=== PATIENT | female | born 1995 | race Two or more races ===

== ENCOUNTER 2022-07-11 19:36 | Emergency (ER) | payer OTHER ==
[~2022-07-11] VITALS: Ht 162.6 cm; Wt 63.9 kg
[2022-07-11 20:25] VITALS: BP 114/75
[2022-07-11] MEDS ORDERED: IBUPROFEN 600 MG TAB PO ONE (20:30)
[2022-07-11] MEDS ORDERED: ACET-1158 PO (23:07)
[2022-07-11] MEDS ORDERED: ONDA-144 PO (23:07)
== END 2022-07-11 23:20 | disposition home or self-care (01) ==
LOC: ER 19:39
DX: K52.9 Noninfective gastroenteritis and colitis, unspecified (principal); Z20.822 Contact with and (suspected) exposure to COVID-19
CPT/HCPCS: 36415; 81002; 87426; 87804

== ENCOUNTER 2023-08-01 12:44 | Emergency (ER) | payer OTHER ==
[~2023-08-01] VITALS: Ht 162.6 cm; Wt 68.1 kg
[~2023-08-01 12:44] MED LIST: ACET500T58 PO; ONDA-144 PO
[2023-08-01 12:59] VITALS: BP 123/75; PULSE 100; RESP 18; O2SAT 98
[2023-08-01 13:34] LABS: Hematocrit 40.9 % (36.0-46.0); Hemoglobin 13.8 g/dL (12.2-16.2); Mean Corpuscular Hemoglobin 31.4 pg (28.0-32.0); Mean Corpuscular Hgb Conc. 33.8 g/dL (32.0-36.0); Mean Corpuscular Volume 93.2 fL (80.0-100.0); Red Blood Cells 4.39 10^6/uL (4.0-5.20); Red Cell Distribution Width 13.4 % (11.8-14.3)
[2023-08-01 13:50] LABS: Basophils % (manual) 0 (0.0-2.0); Blast Cells 0; Eosinophils % (manual) 0 (0-7); Metamyelocytes % 0; Myelocytes % 0; Promyelocytes % 0; Reactive Lymphocytes 0
[2023-08-01 13:53] LABS: Alanine Aminotransferase 20 U/L (7-40); Albumin 4.7 g/dL (3.2-4.8); Alkaline Phosphatase 59 U/L (46-116); Anion Gap 8 (5-15); Aspartate Aminotransferase 26 U/L (13-40); BUN/Creatinine Ratio 9.7 (10.0-20.0); Blood Urea Nitrogen 10 mg/dL (9-23); Calcium 9.4 mg/dL (8.7-10.4); Carbon Dioxide 25 mmol/L (20-30); Chloride 105 mmol/L (98-107); Glucose 101 mg/dL (74-106); Potassium 3.7 mmol/L (3.5-5.1); Sodium 138 mmol/L (136-145)
[2023-08-01 13:54] LABS: Total Protein 7.8 g/dL (5.7-8.2)
[2023-08-01 14:07] LABS: Urine Bacteria NONE SEEN /hpf (None Seen); Urine Blood Negative /uL (Negative); Urine Clarity Clear (Clear); Urine Color Yellow (Yellow); Urine Mucus FEW (None Seen); Urine Protein, UAD 2+ (Negative); Urine Specific Gravity 1.033 (1.001-1.035); Urine WBC 2 /hpf (0 - 5); Urine pH 8.5 (5.0-8.0)
[2023-08-01] MEDS ORDERED: DICYCLOMINE HCL (10MG/ML) 2 ML AMPULE IM ONE (15:15)
[2023-08-01] MEDS ORDERED: ONDANSETRON ODT 4 MG TAB PO ONE (15:15)
[2023-08-01 15:53] LABS: Band Neutrophils % (manual) 1; Lymphocytes % (manual) 6 (10.0-50.0); Monocytes % (manual) 16 (0-12); Platelet Estimate Adequate
== END 2023-08-01 16:04 | disposition left against medical advice (07) ==
LOC: ER 12:44
DX: R10.9 Unspecified abdominal pain (principal); R10.2 Pelvic and perineal pain; R11.2 Nausea with vomiting, unspecified; F12.10 Cannabis abuse, uncomplicated; M54.50 Low back pain, unspecified
CPT/HCPCS: 36415; 80053; 81001; 83690; 84702; 85007; 85027; Q0162

== ENCOUNTER 2023-08-01 18:54 | Emergency (ER) | payer OTHER ==
[~2023-08-01] VITALS: Ht 162.6 cm; Wt 63.6 kg
[2023-08-01 19:15] VITALS: BP 115/75; PULSE 90; RESP 19; O2SAT 97
[2023-08-01 21:15] LABS: Rapid Influenza A Positive (Negative); Rapid Influenza B Negative (Negative)
[2023-08-01 21:16] LABS: COVID19 ANTIGEN SOFIA FIA NEGATIVE (NEGATIVE)
== END 2023-08-02 03:23 | disposition left against medical advice (07) ==
LOC: ER 18:54 → EDUNIT# 18:54 → EDBD 18:54 → ER 08-02 03:23
DX: R51.9 Headache, unspecified (principal); R11.2 Nausea with vomiting, unspecified; Z53.21 Procedure and treatment not carried out due to patient leaving prior to being seen by health care provider
CPT/HCPCS: 36415; 87426; 87804